=== PATIENT | male | born 2000 | race Caucasian/White ===

== ENCOUNTER 2022-04-15 15:50 | Emergency (ER) | payer OTHER, BC ==
[~2022-04-15] VITALS: Ht 162.5 cm; Wt 86.2 kg
[~2022-04-15 15:50] MED LIST: AUGMENTIN ES-6100 ML PO; BENADRYL ALLERG25 M5 PO; PREDNISONE10 MG PO; ZYRTEC10 MG PO
[2022-04-15] MEDS ORDERED: Motrin,Rufen800 MG PO (18:54)
== END 2022-04-15 19:05 | disposition home or self-care (01) ==
LOC: ED 15:50
DX: S01.21XA Laceration without foreign body of nose, initial encounter (principal); V49.49XA Driver injured in collision with other motor vehicles in traffic accident, initial encounter; Y93.89 Activity, other specified; Y92.89 Other specified places as the place of occurrence of the external cause; Y99.8 Other external cause status

== ENCOUNTER 2022-04-30 12:33 | Emergency (ER) | payer BC ==
[~2022-04-30] VITALS: Wt 86.2 kg
[~2022-04-30 12:33] MED LIST changes: +Motrin,Rufen800 MG PO
[2022-04-30 14:08] LABS: BASO # 0.1 10*3/uL (0.0-0.1); BASO % 0.3 % (0.0-1.0); EOS % 0.1 % (1.0-4.0); HEMATOCRIT 48.3 % (42.0-52.0); LYMPH # 0.9 10*3/uL (1.3-4.4); LYMPH % 5.2 % (27.0-41.0); MEAN CELL VOLUME 85.2 fl (80.0-94.0); MEAN CORPUSCULAR HGB 29.6 pg (27.0-31.0); MEAN CORPUSCULAR HGB CONC 34.8 g/dl (33.0-37.0); MEAN PLATELET VOLUME 10.1 fl (9.6-12.3); MONO # 0.7 10*3/uL (0.1-1.0); MONO % 4.2 % (3.0-9.0); NEUT # 15.8 10*3/uL (2.3-7.9); NEUT % 89.5 % (47.0-73.0); PLATELET COUNT AUTOMATED 248 10*3/uL (130-400); RED BLOOD COUNT 5.67 10*6/uL (4.50-5.90); RED CELL DISTRI WIDTH 11.6 % (0-14.5); WHITE BLOOD COUNT 17.6 10*3/uL (4.8-10.8)
[2022-04-30 14:19] LABS: ALKALINE PHOSPHATASE 82 U/L (45-117); BUN 10 mg/dl (7-24); CHLORIDE 108 mmol/L (98-107); CREATININE 1.22 mg/dL (0.70-1.30); LIPASE 61 U/L (73-393); POTASSIUM 4.1 mmol/L (3.5-5.1); SGOT/AST 36 IU/L (3-35); SGPT/ALT 86 U/L (12-78); SODIUM 141 mmol/L (136-145); TOTAL PROTEIN 7.7 gm/dL (6.4-8.2)
[2022-04-30 14:23] LABS: BILIRUBIN Negative (Negative); BLOOD 2+ (Negative); CLARITY Cloudy (Clear); COLOR Yellow (Yellow); GLUCOSE Negative (Negative); KETONE Trace (Negative); LEUKO ESTERASE Negative (Negative); NITRITE Negative (Negative)
[2022-04-30 15:26] LABS: PH 8.5 (4.5-8.0)
[2022-04-30 15:30] LABS: RBC TNTC rbc/hpf (0-2)
[2022-04-30 15:31] LABS: BACTERIA 1+; EPITHELIAL CELLS 0-2
== END 2022-04-30 18:16 | disposition home or self-care (01) ==
LOC: ED 12:33
PROVIDERS: Physician Assistant
DX: N13.2 Hydronephrosis with renal and ureteral calculous obstruction (principal); Z90.49 Acquired absence of other specified parts of digestive tract